=== PATIENT | male | born 1995 | race Caucasian/White ===

== ENCOUNTER 2016-09-13 21:34 | Emergency (ER) | payer OTHER ==
[~2016-09-13] VITALS: Ht 185.4 cm; Wt 105.7 kg
[2016-09-13] MEDS ORDERED: IV NORMAL SALINE 50ML 50 ML ONE (22:07)
[2016-09-13] MEDS ORDERED: CEFAZOLIN SODIUM 1 GM VIAL ONE (22:07)
[2016-09-13] MEDS ORDERED: GELATIN SPONGE SIZE 12-7MM SPONGE. ONE (22:07)
[2016-09-13] MEDS: CEFAZOLIN SODIUM 1 GM in IV NORMAL SALINE 50ML 50 ML IV ONE (22:24)
[2016-09-13] MEDS: GELATIN SPONGE SIZE 12-7MM SPONGE. TP ONE (22:24)
--- NOTE | 2016-09-13 22:33 | ED.ADGEN ---
Past History Past Medical History: No Pertinent History Past Surgical History: No Surgical History Alcohol Use: None Drug Use: None Adult General HPI HPI Patient is a 20-year-old male presents emergency department with a penetrating wound to his left elbow. 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 This occurred approximately 2 hours ago. Patient states he is up-to-date on his tetanus. Denies any other injuries. Review of Systems Review of Systems Constitutional: Denies fever or chills [] Eyes: Denies change in visual acuity, redness, or eye pain [] HENT: Denies nasal congestion or sore throat [] Respiratory: Denies cough or shortness of breath [] Cardiovascular: No additional information not addressed in HPI [] GI: Denies abdominal pain, nausea, vomiting, bloody stools or diarrhea [] : Denies dysuria or hematuria [] Musculoskeletal: Denies back pain or joint pain [] Integument: Denies rash or skin lesions [] Neurologic: Denies headache, focal weakness or sensory changes [] Endocrine: Denies polyuria or polydipsia [] Current Medications Current Medications Current Medications Medications (Trade) Dose Ordered Sig/Maria Victoria Start Time Stop Time Status Last Admin Dose Admin Cefazolin Sodium (Ancef) 1 gm STK-MED ONCE 09/13/16 22:07 09/13/16 22:08 DC Cefazolin Sodium/ Sodium Chloride (Ancef/Iv Sodium Chloride 0.9% 50ml) 50 ml @ 100 mls/hr 1X ONCE 09/13/16 22:00 09/13/16 22:29 DC 09/13/16 22:24 100 MLS/HR Gelatin (Gelfoam Size 12-7mm) 1 each STK-MED ONCE 09/13/16 22:07 09/13/16 22:08 DC Gelatin 1 each 1 each 1X ONCE 09/13/16 22:15 09/13/16 22:16 DC 09/13/16 22:24 1 EACH Sodium Chloride (Iv Sodium Chloride 0.9% 50ml) 50 ml @ As Directed STK-MED ONCE 09/13/16 22:07 09/13/16 22:08 DC Allergies Allergies Allergies Coded Allergies Type Severity Reaction Last Updated Verified No Known Drug Allergies 07/07/15 No Physical Exam Physical Exam Constitutional: Well developed, well nourished, no acute distress, non-toxic appearance. [] HENT: Normocephalic, atraumatic, bilateral external ears normal, oropharynx moist, no oral exudates, nose normal. [] Eyes: PERRLA, EOMI, conjunctiva normal, no discharge. [] Neck: Normal range of motion, no tenderness, supple, no stridor. [] Cardiovascular:Heart rate regular rhythm, no murmur [] Lungs & Thorax: Bilateral breath sounds clear to auscultation [] Abdomen: Bowel sounds normal, soft, no tenderness, no masses, no pulsatile masses. [] Skin: Warm, dry, no erythema, no rash. 1 cm penetrating wound left posterior tricep Extremities: No tenderness, no cyanosis, no clubbing, ROM intact, no edema. [] Neurologic: Alert and oriented X 3, normal motor function, normal sensory function, no focal deficits noted. [] Psychologic: Affect normal, judgement normal, mood normal. [] EKG EKG [] Radiology/Procedures Radiology/Procedures [] Course & Med Decision Making Course & Med Decision Making Pertinent Labs and Imaging studies reviewed. (See chart for details) Patient received a gram of Ancef here in emergency department. He will be sent home with prophylactic antibiotics. Given supportive care and follow-up instructions. [] Final Impression Final Impression Laceration[] Problems: Dragon Disclaimer Dragon Disclaimer This electronic medical record was generated, in whole or in part, using a voice recognition dictation system. MARTHA UGARTE MD Sep 13, 2016 22:33
[2016-09-13] MEDS: THROMBIN 5,000 UNIT NASAL SPRAY BOTTLE. NS ONE (23:00)
[2016-09-13] MEDS ORDERED: CEPH-264 PO (23:06)
[2016-09-13 23:41] VITALS: BP 119/60
== END 2016-09-13 23:44 | disposition home or self-care (01) ==
LOC: ER 21:34
DX: S51.012A Laceration without foreign body of left elbow, initial encounter (principal); W26.0XXA Contact with knife, initial encounter; Y93.89 Activity, other specified; Y99.8 Other external cause status; Y92.89 Other specified places as the place of occurrence of the external cause
CPT/HCPCS: 96365; 99284; J0690